=== PATIENT | male | born 1995 | race African-American/Black ===

== ENCOUNTER 2024-05-09 00:32 | Emergency (ER) | payer OTHER ==
[~2024-05-09] VITALS: Ht 175.3 cm; Wt 82.0 kg
[2024-05-09 00:50] VITALS: TEMP 98.7; O2SAT 98
[2024-05-09 04:06] VITALS: BP 117/69; PULSE 71; RESP 16
== END 2024-05-09 04:08 ==
LOC: ER 00:55
DX: S24.153A Other incomplete lesion at T7-T10 level of thoracic spinal cord, initial encounter (principal); W34.09XA Accidental discharge from other specified firearms, initial encounter; Y93.89 Activity, other specified; Y92.89 Other specified places as the place of occurrence of the external cause; Y99.8 Other external cause status
CPT/HCPCS: 99283